=== PATIENT | female | born 1980 ===

== ENCOUNTER → 2021-04-05 | Outpatient (CLI) | payer OTHER | LOC: SJCVCIMAG 08:02 | PROVIDERS: ATTEND Internal Medicine | DX: I07.1 Rheumatic tricuspid insufficiency (principal); I97.88 Other intraoperative complications of the circulatory system, not elsewhere classified; I95.89 Other hypotension; Z88.0 Allergy status to penicillin; Z87.891 Personal history of nicotine dependence; Z79.899 Other long term (current) drug therapy ==